=== PATIENT | female | born 1945 | race Caucasian/White ===

== ENCOUNTER 2025-06-27 08:01 | Emergency (ER) | payer OTHER, SELFPAY ==
[2025-06-27 08:08] VITALS: BP 169/77
[2025-06-27 08:26] VITALS: BMI 19.0
--- NOTE | 2025-06-27 09:10 | ED.GENMED ---
History of Present Illness
General
Chief Complaint: Fall
Source: patient
Exam Limitations: none
Time Seen by Provider: 06/27/25 08:14
Nursing documentation reviewed up to this point in time: agreed with
History of Present Illness
History of Present Illness:
Patient is a 80-year-old female who presents to the ER for evaluation. Patient reports 2 days ago she fell off of her stool in the kitchen and landed on the right back. She denies hitting her head. She complains of pain to the right back. She is
not on blood thinners. She works here at the [employer] and felt that she could not work today because of discomfort.
She denies any obvious hematuria.
Denies any pain with the breath. Denies any shortness of breath.
Denies any abdominal pain, denies headache/neck pain.
Phy Exam
General Physical Exam
General Presentation: no apparent distress
General age: appears stated age
General Skin: warm and dry
General Habitus: normal
General Mental: alert
General Hydration: appears well hydrated
Cardiovascular Exam
Cardiovascular Exam: regular rate/rhythm, no murmur and normal peripheral pulses
Pulmonary Exam
Pulmonary Exam: lungs clear and no respiratory distress
Neurological Exam
Neurological Exam: alert and oriented x3
Musculoskeletal Exam
Musculoskeletal Exam: other (No obvious head injury no bony cervical thoracic or lumbar tenderness mildly tender to right posterior rib, no crepitus ecchymosis or abrasions to back, minimal flank tenderness)
Skin Exam
Skin Exam: normal color and warm/dry
Psychiatric Exam
Psychiatric Exam: normal mood/affect
Course
Orders/Labs/Results
Orders:
Orders
06/27/25 08:45
Ribs, Right 3 View W/PA Chest [CR Ribs-right 3 Vw W/pa Chest*] Urgent
Comment:
Reason For Exam: trauma
06/27/25 10:20
UA Reflex to Culture [Urinalysis Reflex To Culture] Urgent
Date Specimen was Collected: 06/27/25
Time Specimen was Collected: 08:51
Urine Microscopic Reflex Cult Urgent
Urine Culture Urgent
TREVON Source: U
Specimen Description:
Date Specimen was Collected: 06/27/25
Time Specimen was Collected: 08:51
06/27/25 10:51
Acetaminophen [Tylenol] 650 mg PO NOW STA
Lidocaine [Lidocaine 4% Patch] 1 patch TOPICAL NOW STA
Apply Lidocaine patch(s) to:: right back
Abnormal Lab Results
06/27/25
10:20
Leukocyte Esterase Rfl 3+ A
(Negative)
Urine WBC (Reflex) 11-15 A /HPF
(0-5)
Urine Bacteria (Reflex) Many A
(Negative)
Vital Signs
Initial and Last Documented VS:
Initial Vital Signs
Temp Pulse Resp BP Pulse Ox
97.7 F 69 16 169/77 100
06/27/25 08:08 06/27/25 08:08 06/27/25 08:08 06/27/25 08:08 06/27/25 08:08
Last Documented Vital Signs
Temp Pulse Resp BP Pulse Ox
97.7 F 69 16 169/77 100
06/27/25 08:08 06/27/25 08:08 06/27/25 08:08 06/27/25 08:08 06/27/25 09:13
MDM/Problems Addressed
MDM/Problems Addressed:
As documented patient is a 80-year-old female who fell. She went to sit on a stool which moved and hit her right back. She denies hitting her head. She has been taking Advil but complains of pain to the right posterior back/rib and flank area.
She presents awake alert no acute distress denies any hematuria. She denies any pain with deep breath. She works here at the [employer] and try to work today but because of pain could not and came to the ER. She has no acute distress lungs are
clear not hypoxic no crepitus or ecchymosis or abrasions to posterior back. No acute rib fractures on x-ray. 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
splenic artery aneurysm. Did review this with patient and reviewed the importance of outpatient follow-up. Patient has no blood in her urine contaminated urine specimen no UTI symptoms will not treat urine.
*Radiology
Radiology exam reviewed: radiology read reviewed (Patient with incidental finding and again viewed on x-ray compared from 2015 I did review this with patient.)
*Pulse Oximetry
SaO2: 100
Oxygen Mode of Delivery: Room air
Patient hypoxic: no
*Critical Care Note
Total Time (30-74mins, 75-104mins- exclusive of procedures): Not Applicable
ED Attending Note
-
Portions of this chart may have been created with voice recognition software.� Occasional wrong word or��sound alike� substitutions may have occurred due to the inherent limitations of voice recognition software.
Discharge Plan
Departure
Patient Disposition: Home (Routine Discharge)
Date of Disposition: 06/27/25
Time of Disposition: 11:02
Patient with high blood pressure during this ER visit?: Yes
Condition: Fair
Covid-19: Not Applicable
Discharge Problem:
Back contusion
Instructions: Contusion (DC), BLOOD PRESSURE
Prescriptions:
New
lidocaine 5 % adhesive patch,medicated
1 patch topical DAILY Qty: 15 0RF
Referrals:
Mayur Carpio CRNP [Family Provider, Internal Medicine]
Stand Alone Forms: Return to Work
Activity Restrictions/Additional Instructions:
As discussed continue to alternate Tylenol and Advil/ibuprofen. A prescription for lidocaine patch was sent to your pharmacy use as directed. Follow-up with your family doctor in the next 2 days for reevaluation return if any worsening of
symptoms. Also as discussed please follow-up with your family doctor for incidental finding on your xray as reviewed.
You were given a copy of the report
Interventions
Interventions:
*Risk Screen - Suicide Last Done: 06/27/25 08:08
*Neglect/Abuse Screening Last Done: 06/27/25 08:08
ED-Musculoskeletal Assessment Last Done: 06/27/25 08:26
ED- Neurological Assessment Last Done: 06/27/25 08:26
ED-Skin Assessment Last Done: 06/27/25 08:26
Discharge Date and Time
Print Language: MAORI
[2025-06-27 10:35] LABS: Urine Character Clear (Clear)
[2025-06-27 10:49] LABS: Urine Squamous Cell 21-25 /LPF (Few)
[2025-06-27 10:50] LABS: Urine Red Blood Cell 0-2 /HPF (0-2)
[2025-06-27 11:38] VITALS: BP 121/68
== END 2025-06-27 11:38 | disposition home or self-care (01) ==
LOC: EMR 08:01
PROVIDERS: Nurse Practitioner; EMERGENCY PHYSICIAN Emergency Medicine; FAMILY PHYSICIAN Nurse Practitioner Family
DX: S20.229A Contusion of unspecified back wall of thorax, initial encounter (principal); W22.09XA Striking against other stationary object, initial encounter; I72.8 Aneurysm of other specified arteries
CPT/HCPCS: 99283; 71101; 81003; 81015; 87077; 87086; 87186